=== PATIENT | male | born 1930 | race Caucasian/White ===

== ENCOUNTER 2018-06-14 16:24 | Inpatient (IN) | payer MEDICARE, BC ==
[~2018-06-14] VITALS: Ht 175.3 cm; Wt 56.0 kg
[2018-06-14 17:04] LABS: BASOPHILS # (AUTO) 0.1 K/uL (0.0-8.0); BASOPHILS % (AUTO) 0.8 % (0.0-2.0); EOSINOPHILS % (AUTO) 0.5 % (0.0-7.0); HEMATOCRIT 30.5 % (36.7-47.1); HEMOGLOBIN 10.2 g/dL (12.5-16.3); LYMPHOCYTES # (AUTO) 2.1 K/uL (20.0-40.0); LYMPHOCYTES % (AUTO) 31.8 % (20.5-51.5); MEAN CORPUSCULAR HEMOGLOBIN 36.3 uug (23.8-33.4); MEAN CORPUSCULAR HGB CONC 33 g/dL (32.5-36.3); MEAN CORPUSCULAR VOLUME 108.6 fL (73.0-96.2); MONOCYTES # (AUTO) 1.8 K/uL (2.0-10.0); MONOCYTES % (AUTO) 27.3 % (0.0-11.0); NEUTROPHILS # (AUTO) 2.6 K/uL (1.8-8.9); NEUTROPHILS % (AUTO) 39.6 % (38.5-71.5); PLATELET COUNT (AUTO) 240 K/uL (152-348); RED BLOOD CELL COUNT(AUTO) 2.81 MIL/uL (4.06-5.63); WHITE BLOOD COUNT (AUTO) 6.7 K/uL (3.6-10.2)
[2018-06-14 17:14] LABS: CARBON DIOXIDE 24 mmol/L (21-32); CHLORIDE 103 mmol/L (98-107); GLUCOSE 102 mg/dL (74-106); POTASSIUM 3.8 mmol/L (3.5-5.1); UREA NITROGEN, BLOOD 21 mg/dL (7-18)
[2018-06-14 17:20] LABS: ALANINE AMINOTRANSFERASE 16 U/L (16-63); ALKALINE PHOSPHATASE 57 U/L (50-136); ASPARTATE AMINOTRANSFERASE 16 U/L (15-37); BILIRUBIN,DIRECT 0.2 mg/dL (0.0-0.2); TOTAL PROTEIN, SERUM 7.1 g/dL (6.4-8.2)
[2018-06-14 17:25] LABS: NEUTROPHILS % (MANUAL) 0 % (42-75)
[2018-06-14] MEDS ORDERED: IV NORMAL SALINE 500 ML BAG IV ONE (17:30)
[2018-06-14] MEDS ORDERED: ONDANSETRON IV *ER 4 MG/2 ML VIAL IV ONE (17:30)
[2018-06-14] MEDS ORDERED: LIDOCAINE VISCUS 2% 15 ML UDC MM ONE (17:30)
[2018-06-14] MEDS ORDERED: MORPHINE SULFATE 4 MG/1 ML DISP.SYRIN IV ONE (17:30)
[2018-06-14] MEDS ORDERED: MORPHINE SULFATE 4 MG/1 ML DISP.SYRIN ONE (17:34)
[2018-06-14] MEDS ORDERED: ONDANSETRON 4 MG/2 ML VIAL ONE (17:34)
[2018-06-14] MEDS ORDERED: LIDOCAINE VISCUS 2% 15 ML UDC ONE (17:36)
[2018-06-14] MEDS ORDERED: ALLO100T PO (18:10)
[2018-06-14] MEDS ORDERED: ERGO500040 PO (18:10)
[2018-06-14] MEDS ORDERED: DESV50TA PO (18:10)
[2018-06-14] MEDS ORDERED: LEVO150T PO (18:10)
[2018-06-14] MEDS ORDERED: TORADOL PO (18:10)
[2018-06-14] MEDS ORDERED: ASPI81TA31 PO (18:10)
[2018-06-14] MEDS ORDERED: FERR325T28 PO (18:10)
[2018-06-14] MEDS ORDERED: [UNRECOGNIZED DRUG - CODE] SQ (18:10)
[2018-06-14] MEDS ORDERED: Z GUARD REMEDY PASTE 57 GM TUBE TOP PRN (19:45)
[2018-06-14] MEDS ORDERED: MAGNESIUM HYDROXIDE 30 ML LIQUID UDC PO PRN (19:45)
[2018-06-14] MEDS ORDERED: ONDANSETRON 4 MG/2 ML VIAL IV PRN (19:45)
[2018-06-14] MEDS ORDERED: NITROGLYCERIN OINT 1 GM PACKET TP ONE (19:45)
[2018-06-14 21:50] VITALS: BP 135/72
[2018-06-15 00:51] VITALS: BP 114/66
[2018-06-15] MEDS ORDERED: NITROGLYCERIN OINT 1 GM PACKET TP ONE (01:43)
[2018-06-15 04:00] VITALS: BP 92/56
[2018-06-15] MEDS: LEVOTHYROXINE SODIUM 150 MCG TABLET PO SCH (06:36)
[2018-06-15 06:46] LABS: BASOPHILS # (AUTO) 0.1 K/uL (0.0-8.0); BASOPHILS % (AUTO) 1.1 % (0.0-2.0); EOSINOPHILS # (AUTO) 0.1 K/uL (0.0-0.7); EOSINOPHILS % (AUTO) 1.7 % (0.0-7.0); HEMATOCRIT 27.6 % (36.7-47.1); HEMOGLOBIN 9.2 g/dL (12.5-16.3); LYMPHOCYTES # (AUTO) 1.7 K/uL (20.0-40.0); LYMPHOCYTES % (AUTO) 25.4 % (20.5-51.5); MEAN CORPUSCULAR HEMOGLOBIN 36.3 uug (23.8-33.4); MEAN CORPUSCULAR HGB CONC 33 g/dL (32.5-36.3); MEAN CORPUSCULAR VOLUME 109.6 fL (73.0-96.2); MONOCYTES # (AUTO) 1.7 K/uL (2.0-10.0); NEUTROPHILS % (AUTO) 45.8 % (38.5-71.5); PLATELET COUNT (AUTO) 221 K/uL (152-348); RED BLOOD CELL COUNT(AUTO) 2.52 MIL/uL (4.06-5.63); WHITE BLOOD COUNT (AUTO) 6.6 K/uL (3.6-10.2)
[2018-06-15 07:01] LABS: CARBON DIOXIDE 27 mmol/L (21-32); CHLORIDE 106 mmol/L (98-107); CHOLESTEROL 157 mg/dL (<200); GLUCOSE 92 mg/dL (74-106); HDL CHOLESTEROL 56 mg/dL (40-60); MAGNESIUM 1.8 mg/dL (1.8-2.4); PHOSPHOROUS 2.9 mg/dL (2.5-4.9); POTASSIUM 4.2 mmol/L (3.5-5.1); TRIGLYCERIDES 76 MG/DL (30-150); UREA NITROGEN, BLOOD 19 mg/dL (7-18)
[2018-06-15] MEDS: ASPIRIN 81 MG TAB.CHEW PO SCH (08:30)
[2018-06-15] MEDS: ALLOPURINOL 100 MG TABLET PO SCH (08:30)
[2018-06-15] MEDS: MORPHINE SULFATE 2 MG/1 ML DISP.SYRIN IM PRN ×2 (09:07→14:16)
[2018-06-15 10:02] LABS: BAND % (MANUAL) 1 % (0-10); EOSINOPHILS % (MANUAL) 1 % (0-8); LYMPHOCYTES % (MANUAL) 27 % (20-40); METAMYELOCYTES % 1 % (0-1); MONOCYTES % (MANUAL) 22 % (2-10); MYELOCYTES % 1 % (0-0); NEUTROPHILS % (MANUAL) 47 % (42-75)
[2018-06-15 11:45] VITALS: BP 102/53
[2018-06-15 15:55] VITALS: BP 132/57
[2018-06-15] MEDS ORDERED: LIDOCAINE/PRILOCAINE 5 GM CREAM.GM. TP ONE (16:30)
[2018-06-15] MEDS: HYDROCORTISONE RECTAL SUPP 25 MG EACH RC SCH (16:55)
[2018-06-15] MEDS: TAMSULOSIN HCL 0.4 MG CAP.SR.24H PO SCH (20:38)
[2018-06-15 20:55] VITALS: BP 102/57
[2018-06-15 22:40] LABS: *OCCULT BLOOD STOOL NEGATIVE (NEGATIVE)
[2018-06-16 04:00] VITALS: BP 109/63
[2018-06-16] MEDS: LEVOTHYROXINE SODIUM 150 MCG TABLET PO SCH (06:33)
[2018-06-16] MEDS ORDERED: LIDO30CR TP (07:56)
[2018-06-16] MEDS ORDERED: TAMS-3 PO (07:56)
[2018-06-16] MEDS ORDERED: HYDR25SU13 RC (07:56)
[2018-06-16] MEDS ORDERED: ERGOCALCIFEROL 50,000 UNIT CAPSULE PO SCH (09:00)
[2018-06-16] MEDS: ALLOPURINOL 100 MG TABLET PO SCH (09:09)
[2018-06-16] MEDS: HYDROCORTISONE RECTAL SUPP 25 MG EACH RC SCH ×2 (09:09→17:00)
[2018-06-16] MEDS: ASPIRIN 81 MG TAB.CHEW PO SCH (09:09)
[2018-06-16 11:45] VITALS: BP 104/55
[2018-06-16] MEDS: ACETAMINOPHEN 325 MG TABLET PO PRN ×2 (14:34→20:39)
[2018-06-16 15:20] VITALS: BP 115/60
[2018-06-16 19:35] VITALS: BP 116/62
[2018-06-16] MEDS: TAMSULOSIN HCL 0.4 MG CAP.SR.24H PO SCH (20:20)
[2018-06-17 03:42] VITALS: BP 94/50
[2018-06-17] MEDS: HYDROCODONE/APAP 5-325MG TABLET PO PRN ×2 (03:53→15:15)
[2018-06-17] MEDS ORDERED: IV NORMAL SALINE 500 ML IV ONE ×2 (05:45→06:00)
[2018-06-17 06:00] VITALS: BP 97/48
[2018-06-17] MEDS: LEVOTHYROXINE SODIUM 150 MCG TABLET PO SCH (06:35)
[2018-06-17 08:01] VITALS: BP 106/56
[2018-06-17] MEDS: ASPIRIN 81 MG TAB.CHEW PO SCH (08:33)
[2018-06-17] MEDS: HYDROCORTISONE RECTAL SUPP 25 MG EACH RC SCH ×2 (08:33→17:00)
[2018-06-17] MEDS: ALLOPURINOL 100 MG TABLET PO SCH (08:33)
[2018-06-17 10:56] VITALS: BP 88/43
[2018-06-17 15:14] VITALS: BP 95/57
[2018-06-17] MEDS ORDERED: ALPRAZOLAM 0.25 MG TABLET PO PRN (16:15)
== END 2018-06-17 17:36 | disposition home or self-care (01) | DRG 393 ==
LOC: ER 16:24 → MED 21:01 → TELE1 21:04 → TELE 21:07 → MED 06-15 15:55
PROVIDERS: ADMIT Internal Medicine; ATTEND Internal Medicine
DX: K60.2 Anal fissure, unspecified (principal); N17.0 Acute kidney failure with tubular necrosis; N18.9 Chronic kidney disease, unspecified; I12.9 Hypertensive chronic kidney disease with stage 1 through stage 4 chronic kidney disease, or unspecified chronic kidney disease; D50.9 Iron deficiency anemia, unspecified; E03.9 Hypothyroidism, unspecified; F32.9 Major depressive disorder, single episode, unspecified; N40.0 Benign prostatic hyperplasia without lower urinary tract symptoms; Z79.82 Long term (current) use of aspirin; D63.1 Anemia in chronic kidney disease
CPT/HCPCS: 36415; 71045; 83735; 84100; 85025; 85730; 87040; A4663; J2270; J2405; J7030; J7040; J8499